=== PATIENT | male | born 1955 | race Caucasian/White ===

== ENCOUNTER → 2022-07-03 14:38 | Outpatient (POV) | payer MEDICARE, SELFPAY ==
[2022-07-03 14:55] VITALS: BP 95/69; PULSE 93; RESP 20; BMI 16.9
--- NOTE | 2022-07-03 15:32 | EXP.PAIN.OV ---
HPI Data of Consult Patient: new to practice Consult date: 07/03/22 Requesting Physician: Jazmyn Reyes APRN Primary Care Provider: Santi Connors Consult Narrative Reason for consult: Low back pain History of present illness: Mr. Anton is a 67 year old male who presents today as a new patient. He is a referral from Santi Connors. Patient rates his pain a 10 out of 10 today and states is all in his low back. Patient describes this as a aching sensation that is worse with increased activity. He states he only gets relief when laying down. Patient denies any radicular symptoms. States this is a debilitating pain that affects his activities of daily living. Patient does state back in the 80s he did have a accident where he was housing tobacco and fell off a tractor and hit a wagon with his back. Patient states he has had issues ever since. Patient has tried [id number] ibuprofen and Tylenol with no improvement of his symptoms. He is also seen physical therapy in the past with mild improvement. Patient has also been seen by a orthopedic surgeon who stated he was not a candidate for surgery. Patient has tried injective therapy in the past with a pain clinic in [place] however this did not help his symptoms. Patient has also tried heat and ice however this did not provide any change in his symptoms. Patient does have a history of rheumatoid arthritis as well as a history of alcohol abuse. Patient is currently managed with Percocet 5 mg 3 times a day by Santi Connors. Patient denies any side effects from this medication. He states this medication does take the edge off of his pain. Patient is currently on a blood thinner due to a history of aneurysm and heart attack. His Piotr is [id number]. Its been reviewed and appropriate. CC: Jazmyn Reyes APRN [facility] Medical History (Updated 07/03/22 @ 15:39 by Jazmyn Reyes APRN) Amputation of toe of left foot CAD (coronary artery disease) COPD (chronic obstructive pulmonary disease) HLD (hyperlipidemia) Hypertension Hypothyroid Rheumatoid arthritis Rheumatoid lung disease with rheumatoid arthritis Surgical History (Updated 07/03/22 @ 15:00 by Lainey Gao RN) H/O bilateral cataract extraction History of AAA (abdominal aortic aneurysm) repair Family History (Updated 07/03/22 @ 15:00 by Lainey Gao RN) Other No significant family history Social History (Updated 07/03/22 @ 15:00 by Lainey Gao RN) Smoking Status: Current every day smoker alcohol intake: former current occupational status: retired Travel in the last 8 weeks: None Review of Systems Review of Systems Review of systems:: pertinent systems reviewed and negative unless documented below Review of systems (narrative): Review of Systems: General: No recent weight changes, no fever, no sleep disturbances Respiratory: No cough, no shortness of air, no recurring pulmonary infections Cardiovascular/peripheral vascular: No chest pain, no palpitations, no edema, no shortness of breath Gastrointestinal: No new onset incontinence, normal bowel movements reported Genitourinary: No new onset incontinence Musculoskeletal: Low back pain Psychiatric: [Normal mood/affect] Neurological: [Denies weakness in extremities], [denies balance issues] Meds Home Medications and Allergies Home Medications Medication Instructions Recorded Confirmed Type amlodipine 5 mg tablet 5 mg PO DAILY blood pressure 07/03/22 07/03/22 History aspirin 81 mg capsule 81 mg PO DAILY heart health 07/03/22 07/03/22 History clopidogrel 75 mg tablet 75 mg PO DAILY Blood thinner 07/03/22 07/03/22 History folic acid 1 mg tablet 1 mg PO DAILY Supplement 07/03/22 07/03/22 History levothyroxine 25 mcg tablet 25 mcg PO DAILY hypothyroid 07/03/22 07/03/22 History oxycodone-acetaminophen 5 mg-325 1 tab PO TIDP PRN Pain 07/03/22 07/03/22 History mg tablet prednisone 5 mg tablet 7.5 mg PO DAILY Rheumatoid 07/03/22 07/03/22 History art
== END ==
PROVIDERS: PCP Family Medicine; Visit Provider Nurse Practitioner Family
DX: M51.36 Other intervertebral disc degeneration, lumbar region (principal); M48.061 Spinal stenosis, lumbar region without neurogenic claudication; M47.816 Spondylosis without myelopathy or radiculopathy, lumbar region
CPT/HCPCS: 99202; G0463

== ENCOUNTER → 2022-08-15 08:34 | Day surgery (SDC) | payer MEDICARE, SELFPAY | PROVIDERS: PCP Family Medicine; Visit Provider Anesthesiology | DX: M48.061 Spinal stenosis, lumbar region without neurogenic claudication; M47.819 Spondylosis without myelopathy or radiculopathy, site unspecified; M51.36 Other intervertebral disc degeneration, lumbar region; Z53.9 Procedure and treatment not carried out, unspecified reason | CPT/HCPCS: 62323 ==

== ENCOUNTER → 2022-08-29 08:49 | Day surgery (SDC) | payer MEDICARE, SELFPAY ==
[2022-08-29 09:11] VITALS: BP 144/91; PULSE 80; RESP 20; TEMP 37.2; O2SAT 92; BMI 28.2
[2022-08-29 11:38] VITALS: BP 154/88; PULSE 74; RESP 18; O2SAT 91
[2022-08-29 11:40] VITALS: BP 153/90; PULSE 76; RESP 18; O2SAT 95
[2022-08-29 13:05] VITALS: BP 95/55; PULSE 68; RESP 20; O2SAT 95
--- NOTE | 2022-08-29 13:34 | PC.NURSE ---
1150-pt returned to [facility] via w/c. declined offer to transfer to recliner. VSS, 100/72, 82, 20, 91% on RA. pt denies pain. dressing to lumbar spine id c/d/i 1205-pt sitting in w/c. spouse at bedside. VSS, 101/72, 73, 20, 95% on RA. no c/o pain. declined offer for oral fluids. dressing to lumbar spine c/d/i 1220-VSS 99/56, 68, 20, 92% on RA. sitting in chair. no c/o pain. Without needs or concerns at this time 1235--VSS 98/62, 73, 20, 93% on RA. pt with no c/o pain. reports itching, declined offer for PRN medication. dressing c/d/i 1255-pt resting chair. assisted to standing position. pt reports that he does not ambulate at home but transfers independently. VSS, 95/55, 68, 20, 93% on RA. dressing c/d/i 1300-MD at bedside.
--- NOTE | 2022-08-29 15:10 | EXP.PAIN.PRO ---
Procedure Date: 08/29/22 Time: 15:10 Anesthesiologist:: Jesus Casper MD Complications:: None Pre-procedure Diagnosis:: Degenerative disc disease of lumbar spine with lumbar radiculopathy symptoms Post-procedure Diagnosis:: Same Indications for Procedure:: This patient is a pleasant 67-year-old white male who we are treating for low back pain with lumbar radiculopathy symptoms. He has increasing back pain radiating down both legs. He has been off of his Plavix for 7 days. He has exhausted all conservative treatments including injections, oral medications, physical therapy and he is not a surgical candidate. He has been off of his Plavix for 7 days. He presents for intrathecal pump trial today. He has had a successful psychological evaluation. Procedure Details:: Pain pump trial Informed consent was obtained and the risk and benefits of the procedure was explained to the patient. The patient was taken to the procedure room and placed prone on the procedure table. Patient was prepped and draped in sterile fashion. C-arm fluoroscopy was used to view the lumbar spine. The skin and subcutaneous tissues were anesthetized using lidocaine. I placed a 18-gauge spinal needle into the L4-5 interspace and advanced until clear CSF was obtained. After this intrathecal catheter was inserted and advanced very easily to the L1 vertebral body. The needle was withdrawn. We were able to freely withdraw clear CSF through the catheter. We then injected intrathecal opioid single shot bolus of 25 mcg followed by saline and followed by the previous CSF that was withdrawn. The needle and catheter were then removed and a Band-Aid was placed. Patient tolerated the procedure well with no complications. We reevaluated the patient after 30 minutes to 1 hour. He was also reassessed by physical therapy. He had significant decrease in his pain symptoms. He was 80 to 90% better. He is not normally ambulatory however this was by all indications of a successful trial. Plan and Disposition:: We will follow-up with this patient in 1 week. We will assess efficacy of the trial. If successful we will plan on permanent placement with intrathecal morphine 1 mg/mL to start at 0.1 mg/day. Catheter tip will be at the T10 vertebral body.
== END | disposition home or self-care (01) ==
PROVIDERS: PCP Family Medicine; Visit Provider Anesthesiology
DX: M51.16 Intervertebral disc disorders with radiculopathy, lumbar region (principal); Z72.0 Tobacco use
CPT/HCPCS: 62323

== ENCOUNTER → 2022-12-02 11:05 | Outpatient (POV) | payer MEDICARE, SELFPAY ==
[2022-12-02 11:30] VITALS: BP 60/49; PULSE 75; RESP 15; TEMP 36.4; O2SAT 95; BMI 22.7
--- NOTE | 2022-12-02 11:38 | PC.NURSE ---
1130-provider assessed pt at followup. pt to followup with pcp. pt asymptomatic. pt instructed to push fluids and go to ED if any symptoms.
--- NOTE | 2022-12-02 11:48 | P.PCN_ITS ---
Procedure Anesthesiologist:: Estevan Ward CRNA Complications:: None
--- NOTE | 2022-12-02 11:48 | EXP.PAIN.PRO ---
Procedure Anesthesiologist:: Estevan Ward CRNA Complications:: None
--- NOTE | 2022-12-02 11:48 | EXP.PAIN.SOA ---
[facility] Pain Management SOAP Note Subjective:: This patient is a very pleasant 67-year-old male that comes our clinic today in a wheelchair for a follow-up visit and recommendation of intrathecal pain pump implantation. Patient had a successful trial August 2022. Patient had a denial for his permanent implantation. Patient is essentially wheelchair-bound due to low back hip and leg radicular symptoms. He rates his pain 10/10. Patient had difficulty sitting still during our visit due to pain. He rates his pain today 10/10. Patient had 8 hours of near complete pain relief following the intrathecal narcotic trial. This was done with fentanyl 100 mcg. Patient responded very well to the trial. He was able to ambulate with little to no pain. Flexion, extension, left and right rotation produced minimal pain. During the 8 hours he was able to clean his garage with minimal to no pain. Patient is very interested in permanent intrathecal pain pump placement. Objective:: Patient is awake alert [place] x3. In no acute distress other than low back pain. Flexion-extension lumbar spine very guarded secondary to pain. Deep tendon reflexes upper lower extremities normal. Motor strength upper extremities normal. Lower extremities weak due to lumbar back pain and radiculopathy. Gait is antalgic. Patient requires a wheelchair for access to our clinic today Assessment:: Degenerative disc disease lumbar spine multilevels. Lumbar radiculopathy symptoms. Plan:: I recommend the patient has intrathecal pain pump implantation. Due to the fact he did extremely well with his intrathecal narcotic (fentanyl 100 mcg) trial. His Piotr #[id number] is been reviewed appropriate. [facility] Disclaimer: The information contained in this section may have been updated after the patient was seen, as this information can be updated by other users. Medical History Amputation of toe of left foot CAD (coronary artery disease) COPD (chronic obstructive pulmonary disease) HLD (hyperlipidemia) Hypertension Hypothyroid Rheumatoid arthritis Rheumatoid lung disease with rheumatoid arthritis Surgical History H/O bilateral cataract extraction History of AAA (abdominal aortic aneurysm) repair Family History Other No significant family history Social History (Updated 08/29/22 @ 09:16 by Lainey Gao RN) Smoking Status: Current every day smoker alcohol intake: former substance use type: denies use current occupational status: other Travel in the last 8 weeks: None
== END | disposition home or self-care (01) ==
PROVIDERS: PCP Family Medicine; Visit Provider Nurse Anesthetist, Certified Registered
DX: M51.16 Intervertebral disc disorders with radiculopathy, lumbar region (principal)
CPT/HCPCS: 99212; G0463

== ENCOUNTER 2022-12-12 06:56 | Day surgery (SDC) | payer MEDICARE, SELFPAY ==
[2022-12-12] VITALS (7 sets, daily range): BP systolic 93–137; BP diastolic 48–65; PULSE 68–94; RESP 16–18; TEMP 36.2–43; O2SAT 93–95; BMI 26.1
[2022-12-12 07:48] LABS: Basophils # 0.2 K/mm3 (0-0.2); Basophils % 0.9 % (0.1-2.0); Hematocrit 53.4 % (42.0-52.0); Hemoglobin 17.2 g/dL (14.1-18.0); Lymphocytes # 3.5 K/mm3 (0.7-4.5); Lymphocytes % 20.3 % (10-50); Mean Corpuscular HGB Conc 32.3 g/dL (31.8-35.4); Mean Corpuscular Hemoglobin 27.9 pg (27.0-31.2); Mean Corpuscular Volume 86.3 fl (80-94); Mean Platelet Volume 7.4 fl (7.4-10.4); Monocytes % 5.8 % (1.7-9.3); Neutrophils # 11.5 K/mm3 (1.8-7.8); Platelet Count 463 K/mm3 (142-424); Red Blood Count 6.19 M/mm3 (4.60-6.20); Red Cell Distribution Width 15.1 % (11.5-17.5); White Blood Count 17.2 K/mm3 (4.8-10.8)
[2022-12-12 07:55] LABS: MANUAL DIFFERENTIAL MANUAL DIFFERENTIAL (MANUAL DIFF)
--- NOTE | 2022-12-12 07:56 | EXP.ANES.CKL ---
[facility] Disclaimer: The information contained in this section may have been updated after the patient was seen, as this information can be updated by other users. Medical History (Updated 12/12/22 @ 07:22 by Matilda Villagomez RN) Amputation of toe of left foot CAD (coronary artery disease) COPD (chronic obstructive pulmonary disease) HLD (hyperlipidemia) Hx of myocardial infarction Hypertension Hypothyroid Rheumatoid arthritis Rheumatoid lung disease with rheumatoid arthritis Surgical History (Updated 12/12/22 @ 07:22 by Matilda Villagomez RN) H/O bilateral cataract extraction H/O knee surgery History of AAA (abdominal aortic aneurysm) repair History of heart artery stent Family History (Updated 12/12/22 @ 07:22 by Matilda Villagomez RN) Other Family history of myocardial infarction Social History (Updated 12/12/22 @ 07:25 by Matilda Villagomez RN) Smoking Status: Current every day smoker alcohol intake: former substance use type: denies use current occupational status: other Travel in the last 8 weeks: None household members: spouse housing: house lives independently: Yes marital status: education level: middle school caffeine: Yes special diego needs: No agree to transfusion: No do you feel safe at home: Yes victim of physical abuse: No victim of emotional abuse: No victim of sexual abuse: No would you like helpful sources: No [facility] Anesthesia Checklist Patient Identification Patient Identification: Arm Band and Family Structural Data Admitted From: Home Planned Operative Procedure/s: Pain Pump Placement Consent for Planned Operative Procedure(s) Verified: Yes Verified Documents: Surgical Consent and History and Physical NPO Status Verified Time NPO: 00:00 Additional verifications Patient : No Anesthesia Reactions: No Hx Blood Transfusions: No Blood Transfusion Reaction: No Cephalosporin Allergy: No Previous Colonoscopy: No Airway Assessment C-Spine Mobility Assessed: Yes TMJ Mobility Assessed: Yes Dentition: Edentulous Neurological Assessment Level of Consciousness: Awake, Alert, Appropriate and Follows Commands Hx Seizures: No Numbness or tingling in extremities: No Anesthesia Plan Anesthesia Risk discussed: Yes ASA Class: III Anesthesia Type: MAC Preoperative Comments Pre-Operative Comments: Wheelchair dependent. Cardiac stents X4. On Warfarin. Of Plavix X10 days. Rheumatoid arthritis.
[2022-12-12 08:00] LABS: Chloride 105 mmol/L (98-107); Sodium 140 mmol/L (136-145)
[2022-12-12 08:01] LABS: Potassium 3.8 mmoL/L (3.5-5.1)
[2022-12-12 08:03] LABS: Blood Urea Nitrogen 12 mg/dl (9-20); Creatinine Clearance Estimated 73 mL/min (50-200); Estimated Glomerular Filt Rate 112 ml/min (>60); GFR (African American) 136 ML/MIN (>60)
[2022-12-12 08:04] LABS: Anion Gap 11.8 mEq/L (5-15); Calcium 8.6 mg/dl (8.4-10.2); Carbon Dioxide 27 mmol/L (22.0-30.0); Glucose 102 mg/dl (74-100)
[2022-12-12 08:16] LABS: Lymphocytes % 25 % (10-50); Monocytes % 9 % (2-9); Neutrophils % 66 % (42-76); Platelet Estimate Slight Increase; RBC Morphology Normal; Total Cells Counted 100
--- NOTE | 2022-12-12 13:51 | EXP.OP.NOTE ---
Date of procedure: 12/12/22 Pre-op Diagnosis:: Degenerative disease of lumbar spine with lumbar radiculopathy symptoms. Post-op Diagnosis:: Same Procedure performed:: Perm placement intrathecal pain pump with catheter and tunneling and pain pump reservoir placement Surgeon:: Jesus Casper MD PUBLIC POLICY ANALYST:: Pablo Khan Anesthesia: MAC Estimated blood loss (mL): 5 Clinical Note:: The patient is a pleasant 67-year-old white male who we are treating for low back pain with lumbar colopathy symptoms. Has been off of his Plavix for 7 days. He is exhausted all conservative treatments including injections, oral medications, physical therapy and is not a surgical candidate. He has had a successful intrathecal pump trial. He is also had a successful psychological evaluation. He presents for permanent placement of his intrathecal pain pump today. Operative findings:: None Operative note:: Informed consent was obtained and the risk and benefits of the procedure were explained to the patient. The patient was taken the operating room placed prone on the procedure table. The patient was prepped and draped in sterile fashion. C-arm fluoroscopy was used to view the right flank. An incision was made between the 12th rib and the iliac crest. A pocket was created for the pump. Ray-Radha's were placed in the pocket for hemostasis. C-arm fluoroscopy was then used to view the lumbar spine. The skin and subcutaneous tissues adjacent to the L4-5 and L5-S1 interspace were Using lidocaine. An incision was made. We dissected down to the lumbar paraspinous fascia. A 17-gauge spinal needle was inserted and advanced into the L5-S1 interspace until clear CSF was obtained. After this intrathecal catheter was inserted and advanced very easily to the T8 vertebral body. Catheter placement was posterior based on lateral view. The stylette of the catheter and the needle withdrawn. The catheter was secured to the fascia with an anchoring vice and 2-0 Prolene. I feel the pump was 20 mils of intrathecal morphine 1 mg per ml. I tunneled catheter from the back to the pump pocket and attached catheter to the pump. The Ray-Radha's were removed from the pocket. We were able to freely withdraw clear fluid from the sideport again. Both incisions were irrigated with antibiotic solution. Both incisions were then closed with 2-0 Vicryl followed by 4-0 nylon and trevor. A wound VAC was placed over both incisions. The patient was placed in an abdominal binder and taken recovery in stable condition. Pump was interrogated and started 0.1 mg/day of intrathecal bupivacaine. Patient was discharged home neurologically intact with good relief of pain symptoms. Plan and disposition: We will follow-up with this patient in 1 week for wound check and reprogramming if needed. We will follow-up in 2 to 3 weeks for suture and staple. If patient has any problems or questions they are to call us back in the pain clinic. Condition: stable Disposition: PACU Complications:: None
== END 2022-12-12 10:53 | disposition home or self-care (01) ==
PROVIDERS: PCP Family Medicine; Visit Provider Anesthesiology
DX: M51.16 Intervertebral disc disorders with radiculopathy, lumbar region; Z72.0 Tobacco use; Z79.899 Other long term (current) drug therapy
CPT/HCPCS: 62350; 62362; 80048; 85007; 85025; 96374; C1755; C1772

== ENCOUNTER → 2022-12-19 10:35 | Outpatient (POV) | payer MEDICARE, SELFPAY ==
[2022-12-19 11:33] VITALS: BP 109/62; PULSE 104; RESP 18; O2SAT 96; BMI 25.0
--- NOTE | 2022-12-19 12:15 | EXP.PAIN.SOA ---
[facility] Pain Management SOAP Note Subjective:: This patient is a very pleasant 67-year-old male that comes our clinic today for follow-up visit after intrathecal pain pump implant on 12/12/2022. Patient states overall, he is 50 to 75% better. He reports some incisional back pain today. His incisions are clean and dry. No evidence of infection. He is currently being managed with morphine sulfate 1 mg/mL at 0.1 mg/day. Patient presents in a wheelchair today. However, this is due to the excess distance from the parking lot. Otherwise, he is ambulatory at home. We discussed in detail the importance of not taking oral narcotics now that he has the intrathecal pain pump. Patient has been receiving oxycodone 5 mg 3 times daily from his primary care physician. Objective:: Patient is awake alert [place] x3. No acute distress. Flexion-extension lumbar spine guarded secondary to pain. Deep tendon reflexes upper lower extremities normal. Motor strength upper and lower extremities normal. There is no gross sensory deficit. Gait is antalgic. Patient requires wheelchair for distance. Otherwise ambulatory at home. Assessment:: Degenerative disc disease lumbar spine multilevels. Lumbar radiculopathy. Plan:: I encouraged the patient to wear his abdominal binder is much as possible. We will not make any changes in his intrathecal pain pump rate at this time. He seems to be doing very well with his current rate. Patient will return in 2 weeks for suture/staple removal. [facility] Disclaimer: The information contained in this section may have been updated after the patient was seen, as this information can be updated by other users. Medical History (Updated 12/12/22 @ 07:22 by Matilda Villagomez RN) Amputation of toe of left foot CAD (coronary artery disease) COPD (chronic obstructive pulmonary disease) HLD (hyperlipidemia) Hx of myocardial infarction Hypertension Hypothyroid Rheumatoid arthritis Rheumatoid lung disease with rheumatoid arthritis Surgical History (Updated 12/12/22 @ 07:22 by Matilda Villagomez RN) H/O bilateral cataract extraction H/O knee surgery History of AAA (abdominal aortic aneurysm) repair History of heart artery stent Family History (Updated 12/12/22 @ 07:22 by Matilda Villagomez RN) Other Family history of myocardial infarction Social History (Updated 12/12/22 @ 07:25 by Matilda E Hernando, RN) Smoking Status: Current every day smoker alcohol intake: former substance use type: denies use current occupational status: retired Travel in the last 8 weeks: None household members: spouse housing: house lives independently: Yes marital status: education level: middle school caffeine: Yes special diego needs: No agree to transfusion: No do you feel safe at home: Yes victim of physical abuse: No victim of emotional abuse: No victim of sexual abuse: No would you like helpful sources: No
== END ==
PROVIDERS: PCP Family Medicine; Visit Provider Nurse Anesthetist, Certified Registered
DX: M51.16 Intervertebral disc disorders with radiculopathy, lumbar region (principal); Z72.0 Tobacco use; Z97.8 Presence of other specified devices
CPT/HCPCS: 99212; G0463

== ENCOUNTER → 2023-01-01 14:01 | Outpatient (POV) | payer MEDICARE, SELFPAY ==
--- NOTE | 2023-01-01 14:39 | EXP.PAIN.PRO ---
Procedure Date: 01/01/23 Time: 14:39 Anesthesiologist:: Jazmyn Reyes APRN Complications:: None Pre-procedure Diagnosis:: Degenerative disc disease of lumbar spine multilevels with lumbar radiculopathy symptoms Post-procedure Diagnosis:: Same Indications for Procedure:: Patient is a pleasant 67-year-old male who presents today for intrathecal pain pump reprogramming adjustment. The patient is being treated for degenerative disc disease of lumbar spine with lumbar radiculopathy symptoms. Patient is currently being managed with morphine 1 mg/mL with a daily dose of 0.1 mg/day. Patient denies any side effects from this medication. Patient rates pain a 7 out of 10. Patient does state he continues to have some incisional back pain. He did have his intrathecal pump placed on 12/12/2022. Patient does describe this as an aching, throbbing sensation that is worse with increased activity. He does present today in wheelchair for help with ambulation. Patient is currently prescribed Percocet 5 mg 3 times a day from his primary care doctor. Patient denies any side effects from this medication. Drug screen is appropriate. Piotr [id number] has been reviewed and is appropriate. Physical exam General: Alert and oriented x3, no acute distress, pleasant and cooperative Lungs: Respirations even and unlabored, symmetrical chest expansion Eyes: PERRL Musculoskeletal: Flexion and extension of lumbar [spine] somewhat guarded secondary to pain, [antalgic gait noted] Neurological: Speech clear, no gross sensory deficit Skin: Incision sites clean, dry, well approximated, mild erythema with sutures and trevor intact Procedure Details:: Informed consent was obtained and the risk and benefits of the procedure were explained to the patient. Patient was taken to the procedure room where noninvasive monitoring was placed including noninvasive blood pressure cuff and pulse oximeter. Patient's pump was interrogated and was reprogrammed to morphine 0.11 mg/day. The patient tolerated the procedure well with no complications. Plan and Disposition:: Patient is experiencing increased pain symptoms following his procedure. His incision site is clean, dry, well approximated with mild erythema. We did remove all the sutures and trevor from the midline incision as well as removing sutures and some trevor on his incision at his pump site. We will leave approximately [address] and patient will return to clinic next week for the removal of these if indicated. Steri-Strips were applied to the midline incision. I have counseled the patient to continue postoperative restrictions of minimal bending, lifting, twisting no submerging in tub water and continuing to wear his abdominal binder. Patient will return to clinic in 1 week for reevaluation of symptoms and plan of care. Patient has been instructed to contact the clinic with any concerns before the next appointment. Dr. Casper has reviewed this note and agrees with this plan of care. This note was dictated using voice recognition software and make contain errors or omissions. -- It Is medically necessary for this patient to continue to have their intrathecal pump refilled at regular intervals. This patient had an intrathecal pain pump implanted after meeting criteria of chronic intractable pain for greater than 3 months and failing conservative treatments. Patient has committed and been compliant to the treatment plan and all planned follow up care. Since implantation of the intrathecal pain pump, the patient has had decreased pain and been more functional. Oral medications have been reduced including intake of oral opioids. Patient continues to do well with intrathecal therapy with decrease in pain symptoms and increase in functional status. Stopping intrathecal medications can lead to life threatening withdrawal, seizures, cardiac arrest, severe pain, and possible . Pumps that are not refilled at regular intervals
[2023-01-01 15:23] VITALS: BP 86/52; PULSE 73; RESP 18; O2SAT 97; BMI 25.8
== END | disposition home or self-care (01) ==
PROVIDERS: PCP Family Medicine; Visit Provider Nurse Practitioner Family
DX: Z45.1 Encounter for adjustment and management of infusion pump (principal); M51.16 Intervertebral disc disorders with radiculopathy, lumbar region
CPT/HCPCS: 62368; 99213; G0463

== ENCOUNTER → 2023-01-08 14:13 | Outpatient (POV) | payer MEDICARE, SELFPAY ==
--- NOTE | 2023-01-08 15:14 | EXP.PAIN.PRO ---
Procedure Date: 01/08/23 Time: 14:38 Anesthesiologist:: Jazmyn Reyes APRN Complications:: None Pre-procedure Diagnosis:: Degenerative disc disease of the lumbar spine with lumbar radiculopathy symptoms, arthritis Post-procedure Diagnosis:: Same Indications for Procedure:: Patient is a pleasant 67-year-old male who presents today for intrathecal pain pump reprogramming adjustment. The patient is being treated for degenerative disc disease of lumbar spine with lumbar reticular apathy symptoms, generalized arthritis. Patient is currently being managed with morphine 1 mg/mL with a daily dose of 0.11 mg/day. Patient denies any side effects from this medication. Patient rates pain a 5 out of 10. Patient denies any new injury or trauma. He states he does continue to have pain in his hands related to his arthritis as well as some low back pain that is midline possibly from incisional pain. Patient had previously been prescribed Percocet 5 mg 3 times a day from his primary care doctor. He states at his last visit he was told to discontinue this medication since he now has his pain pump. Drug screen is appropriate. [facility], [place] [id number] has been reviewed and is appropriate. Physical exam General: Alert and oriented x3, no acute distress, pleasant and cooperative Lungs: Respirations even and unlabored, symmetrical chest expansion Eyes: PERRL Musculoskeletal: Flexion and extension of lumbar [spine] somewhat guarded secondary to pain, [antalgic gait noted] Neurological: Speech clear, no gross sensory deficit Skin: Incision sites clean, dry, well approximated with mild erythema noted, trevor intact Procedure Details:: Informed consent was obtained and the risk and benefits of the procedure were explained to the patient. Patient was taken to the procedure room where noninvasive monitoring was placed including noninvasive blood pressure cuff and pulse oximeter. Patient's pump was interrogated and was reprogrammed to morphine 0.1-1 1 mg/day. The patient tolerated the procedure well with no complications. Plan and Disposition:: Patient's incision site is clean, dry, well approximated with mild erythema noted and trevor intact. At this time we did not remove any additional trevor and patient will follow-up next week. I have counseled the patient to continue his postop restrictions and if indicated next week we will remove the remainder trevor and apply Steri-Strips. I will order the patient a compounding cream at today's visit to help with his arthritis. Patient will return to clinic in 1 week for reevaluation of symptoms, and plan of care. Patient has been instructed to contact the clinic with any concerns before the next appointment. Dr. Casper has reviewed this note and agrees with this plan of care. This note was dictated using voice recognition software and make contain errors or omissions. -- It Is medically necessary for this patient to continue to have their intrathecal pump refilled at regular intervals. This patient had an intrathecal pain pump implanted after meeting criteria of chronic intractable pain for greater than 3 months and failing conservative treatments. Patient has committed and been compliant to the treatment plan and all planned follow up care. Since implantation of the intrathecal pain pump, the patient has had decreased pain and been more functional. Oral medications have been reduced including intake of oral opioids. Patient continues to do well with intrathecal therapy with decrease in pain symptoms and increase in functional status. Stopping intrathecal medications can lead to life threatening withdrawal, seizures, cardiac arrest, severe pain, and possible . Pumps that are not refilled at regular intervals can be damages and cause and need for replacement. We continually titrate dose and concentration to optimize pain relief and function. We are limited in concentration for certain drugs to safely deliver medications thro
[2023-01-08 16:00] VITALS: BP 144/71; PULSE 104; RESP 20; O2SAT 96; BMI 25.8
== END | disposition home or self-care (01) ==
PROVIDERS: PCP Family Medicine; Visit Provider Nurse Practitioner Family
DX: Z45.1 Encounter for adjustment and management of infusion pump (principal); M51.16 Intervertebral disc disorders with radiculopathy, lumbar region; M19.90 Unspecified osteoarthritis, unspecified site
CPT/HCPCS: 62368; 99213; G0463

== ENCOUNTER → 2023-01-14 12:54 | Outpatient (POV) | payer MEDICARE, SELFPAY ==
--- NOTE | 2023-01-14 13:28 | EXP.PAIN.SOA ---
[facility] Pain Management SOAP Note Subjective:: Patient is a pleasant 67-year-old male who presents today for follow-up. We are currently treating the patient for degenerative disc disease of lumbar spine with lumbar radiculopathy symptoms, arthritis. Today he rates his pain a 5 out of 10. Patient denies any new trauma or injury. Patient denies any change location or type of pain he experiences. Patient states he has had better improvement of his pain symptoms since his last increase last week. Patient is currently managed with morphine 1 mg/mL with 0.1211 mg/day. Patient denies any side effects from this medication. He states it is helping improve his pain symptoms. Patient states that he does notice occasional pain when he bumps around his pump site. Patient does state that he feels like he does have additional weakness in his legs and does use a walker at home for help with ambulation. Patient is not currently on any scheduled medications. His Piotr is [id number]. Its been reviewed and appropriate. Review of Systems: General: No recent weight changes, no fever, no sleep disturbances Respiratory: No cough, no shortness of air, no recurring pulmonary infections Cardiovascular/peripheral vascular: No chest pain, no palpitations, no edema, no shortness of breath Gastrointestinal: No new onset incontinence, normal bowel movements reported Genitourinary: No new onset incontinence Musculoskeletal: Low back pain Psychiatric: [Normal mood/affect] Neurological: [Denies weakness in extremities], [denies balance issues] Objective:: Physical Exam: General: Alert and oriented x3, no acute distress, pleasant and cooperative Lungs: Respirations even and unlabored, symmetrical chest expansion Eyes: PERRL Musculoskeletal: Flexion and extension of lumbar [spine] somewhat guarded secondary to pain, [antalgic gait noted] Neurological: Speech clear, no gross sensory deficit Assessment:: Degenerative disc disease of lumbar spine with lumbar radiculopathy symptoms, generalized arthritis Plan:: Patient is doing well since his recent intrathecal reprogram last week and does not need any additional adjustments at this time. Patient's incision sites are clean, dry, well approximated and did have the remainder of his trevor were removed during today's visit with Steri-Strips applied. I have counseled the patient to continue his postop restrictions and that he may benefit from physical therapy in the future. Patient will return to clinic in 1 month for reevaluation of symptoms and plan of care. Patient has been instructed to contact the clinic with any concerns before the next appointment. Dr. Casper has reviewed this note and agrees with this plan of care. This note was dictated using voice recognition software and make contain errors or omissions. -- It Is medically necessary for this patient to continue to have their intrathecal pump refilled at regular intervals. This patient had an intrathecal pain pump implanted after meeting criteria of chronic intractable pain for greater than 3 months and failing conservative treatments. Patient has committed and been compliant to the treatment plan and all planned follow up care. Since implantation of the intrathecal pain pump, the patient has had decreased pain and been more functional. Oral medications have been reduced including intake of oral opioids. Patient continues to do well with intrathecal therapy with decrease in pain symptoms and increase in functional status. Stopping intrathecal medications can lead to life threatening withdrawal, seizures, cardiac arrest, severe pain, and possible . Pumps that are not refilled at regular intervals can be damages and cause and need for replacement. We continually titrate dose and concentration to optimize pain relief and function. We are limited in concentration for certain drugs to safely deliver medications through the pump and stay within the recommendations from the Polyanalgesic Cons
[2023-01-14 15:01] VITALS: BP 100/62; PULSE 110; RESP 20; BMI 25.8
== END ==
PROVIDERS: PCP Family Medicine; Visit Provider Nurse Practitioner Family
DX: M51.16 Intervertebral disc disorders with radiculopathy, lumbar region (principal); M19.90 Unspecified osteoarthritis, unspecified site
CPT/HCPCS: 62368

== ENCOUNTER → 2023-02-16 13:20 | Outpatient (POV) | payer MEDICARE, SELFPAY ==
[2023-02-16 14:13] VITALS: BP 115/66; PULSE 101; RESP 24; BMI 25.7
--- NOTE | 2023-02-16 14:15 | EXP.PAIN.PRO ---
Procedure Date: 02/16/23 Time: 14:15 Anesthesiologist:: Jazmyn Reyes APRN Complications:: None Pre-procedure Diagnosis:: Degenerative disc disease of lumbar spine with lumbar radiculopathy symptoms, arthritis Post-procedure Diagnosis:: Same Indications for Procedure:: Patient is a pleasant 67-year-old male who presents today for intrathecal pain pump reprogram and adjustments. The patient is being treated for degenerative disc disease of lumbar spine with lumbar radiculopathy symptoms, arthritis. Patient is currently being managed with intrathecal morphine 1 mg/mL with a daily dose of 0.1211 milligrams per day. Patient denies any side effects from this medication. He is also prescribed Percocet 5 mg 3 times a day from his primary care doctor. Patient denies any side effects from this medication. He states he has been having additional pain as he has been moving around more. Patient does state he has rheumatoid arthritis and usually does infusions however he has to sit for 5 hours when this is occurring and he has not been able to handle the prolonged positioning. Patient rates pain a 10 out of 10. Drug screen is appropriate. [facility] [id number] has been reviewed and is appropriate. Physical exam General: Alert and oriented x3, no acute distress, pleasant and cooperative Lungs: Respirations even and unlabored, symmetrical chest expansion Eyes: PERRL Musculoskeletal: Flexion and extension of lumbar [spine] somewhat guarded secondary to pain, [antalgic gait noted] Neurological: Speech clear, no gross sensory deficit Skin: Incision sites clean, dry with moderate scabbing over right lateral portion, no erythema noted Procedure Details:: Informed consent was obtained and the risk and benefits of the procedure were explained to the patient. Patient was taken to the procedure room where noninvasive monitoring was placed including noninvasive blood pressure cuff and pulse oximeter. Patient's pump was interrogated and was reprogrammed to morphine 0.1332 mg/day. The patient tolerated the procedure well with no complications. Plan and Disposition:: Patient tolerated his increase with no complications and was discharged neurologically intact. Patient will return to clinic in 2 weeks for reevaluation of symptoms, possible intrathecal adjustments and follow-up. Patient's incision sites did appear that at some point in time it had opened up along the right lateral border however during today's visit it is fully scabbed over with no signs of infection. We will continue to monitor this at upcoming visits. Patient has been instructed to contact the clinic with any concerns before the next appointment. Dr. Casper has reviewed this note and agrees with this plan of care. This note was dictated using voice recognition software and make contain errors or omissions. -- It Is medically necessary for this patient to continue to have their intrathecal pump refilled at regular intervals. This patient had an intrathecal pain pump implanted after meeting criteria of chronic intractable pain for greater than 3 months and failing conservative treatments. Patient has committed and been compliant to the treatment plan and all planned follow up care. Since implantation of the intrathecal pain pump, the patient has had decreased pain and been more functional. Oral medications have been reduced including intake of oral opioids. Patient continues to do well with intrathecal therapy with decrease in pain symptoms and increase in functional status. Stopping intrathecal medications can lead to life threatening withdrawal, seizures, cardiac arrest, severe pain, and possible . Pumps that are not refilled at regular intervals can be damages and cause and need for replacement. We continually titrate dose and concentration to optimize pain relief and function. We are limited in concentration for certain drugs to safely deliver medications through the pump and stay within the recomm
== END | disposition home or self-care (01) ==
PROVIDERS: PCP Family Medicine; Visit Provider Nurse Practitioner Family
DX: M51.16 Intervertebral disc disorders with radiculopathy, lumbar region (principal); M19.90 Unspecified osteoarthritis, unspecified site
CPT/HCPCS: 62368

== ENCOUNTER → 2023-03-02 13:51 | Outpatient (POV) | payer MEDICARE, SELFPAY ==
--- NOTE | 2023-03-02 14:35 | EXP.PAIN.PRO ---
Procedure Date: 03/02/23 Time: 14:35 Anesthesiologist:: Jazmyn Reyes APRN Complications:: None Pre-procedure Diagnosis:: Degenerative disc disease of lumbar spine with lumbar radiculopathy symptoms, arthritis Post-procedure Diagnosis:: Same Indications for Procedure:: Patient is a pleasant 67-year-old male who presents today for intrathecal pain pump reprogramming adjustment. The patient is being treated for degenerative disc disease of lumbar spine with lumbar radiculopathy symptoms, arthritis. Patient is currently being managed with morphine 1 mg/mL with a daily dose of 0.1332 mg/day. Patient denies any side effects from this medication. Patient rates pain a 10 out of 10. Drug screen is appropriate. [facility] [id number] has been reviewed and is appropriate. Physical exam General: Alert and oriented x3, no acute distress, pleasant and cooperative Lungs: Respirations even and unlabored, symmetrical chest expansion Eyes: PERRL Musculoskeletal: Flexion and extension of lumbar [spine] somewhat guarded secondary to pain, [antalgic gait noted] Neurological: Speech clear, no gross sensory deficit Skin: Incision site has the right lateral border open with pus filled drainage noted Procedure Details:: Informed consent was obtained and the risk and benefits of the procedure were explained to the patient. Patient was taken to the procedure room where noninvasive monitoring was placed including noninvasive blood pressure cuff and pulse oximeter. Patient's pump was interrogated and was reprogrammed to morphine 0.1597 mg/day. The patient tolerated the procedure well with no complications. Plan and Disposition:: Patient is experiencing significant pain in his low back. I have counseled the patient that his current incision site along the right lateral border is open and draining. Patient does not have erythema noted around this site however due to the depth of the wound I am recommending that we schedule him for revision to close the area. Patient will be scheduled next Thursday for revision in [place]. We will contact the patient for all his appointments info and submit to insurance for this procedure. Patient has been instructed to contact the clinic with any concerns before the next appointment. Dr. Casper has reviewed this note and agrees with this plan of care. This note was dictated using voice recognition software and make contain errors or omissions. -- It Is medically necessary for this patient to continue to have their intrathecal pump refilled at regular intervals. This patient had an intrathecal pain pump implanted after meeting criteria of chronic intractable pain for greater than 3 months and failing conservative treatments. Patient has committed and been compliant to the treatment plan and all planned follow up care. Since implantation of the intrathecal pain pump, the patient has had decreased pain and been more functional. Oral medications have been reduced including intake of oral opioids. Patient continues to do well with intrathecal therapy with decrease in pain symptoms and increase in functional status. Stopping intrathecal medications can lead to life threatening withdrawal, seizures, cardiac arrest, severe pain, and possible . Pumps that are not refilled at regular intervals can be damages and cause and need for replacement. We continually titrate dose and concentration to optimize pain relief and function. We are limited in concentration for certain drugs to safely deliver medications through the pump and stay within the recommendations from the Polyanalgesic Consensus Committee Guidelines. Depending on dose and concentration these pumps may need to be refilled sooner than 3 months as we titrate.
[2023-03-02 14:54] VITALS: BP 104/62; PULSE 114; RESP 20; BMI 19.3
--- NOTE | 2023-03-05 08:50 | PC.NURSE ---
03/[id number]-Ybrfvnw DS i tab po BID #[id number] called in to [facility] pharmacy in [place] per Dr. Casper order. 03/04/23 1251-Patient notified to stop Plavix per Dr. Casper instruction and that antibiotics were called in to his pharmacy per Dr. Casper order. understanding verbalized.
== END | disposition home or self-care (01) ==
PROVIDERS: PCP Family Medicine; Visit Provider Nurse Practitioner Family
DX: Z45.1 Encounter for adjustment and management of infusion pump (principal); M51.16 Intervertebral disc disorders with radiculopathy, lumbar region; M19.90 Unspecified osteoarthritis, unspecified site
CPT/HCPCS: 62368

== ENCOUNTER → 2023-03-09 12:54 | Outpatient (POV) | payer MEDICARE, SELFPAY ==
--- NOTE | 2023-03-09 13:25 | EXP.PAIN.PRO ---
Procedure Date: 03/09/23 Time: 13:25 Anesthesiologist:: Jazmyn Reyes APRN Complications:: None Pre-procedure Diagnosis:: Degenerative disc disease of lumbar spine with lumbar radiculopathy symptoms, arthritis, dehiscence of lower lumbar incision site Post-procedure Diagnosis:: Same Indications for Procedure:: Patient is a pleasant 67-year-old male who presents today for wound dehiscence follow-up and intrathecal pain pump reprogram and adjustment. The patient is being treated for degenerative disc disease of lumbar spine with lumbar radiculopathy symptoms, arthritis, dehiscence of lower lumbar incision site. Patient is currently being managed with morphine 1 mg/mL with a daily dose of 0.1597 mg/day. Patient denies any side effects from this medication. He states he has not noticed significant relief at this time. Patient rates pain a 10 out of 10. Patient denies any new trauma or injury. He denies any change location or type of pain he experiences. He continues to have significant low back pain that is worse with increased activity. He often states his pain is aggravated by riding in a vehicle or sitting for prolonged periods of time. He states the only improvement he gets is when he is laying down. He does also experience more sweating over the last week. Patient states he does continue to have some dizziness but this has been going on for months. Patient states he did have several labs drawn by his primary care doctor a couple of months ago with no abnormalities noted. He is still continuing to take antibiotics for his open wound. At our last visit we did prescribe these antibiotics and did try and get him in for a wound washout and closure however the closest location was in [place] and the patient declined to travel to this location. Drug screen is appropriate. [facility] [id number] has been reviewed and is appropriate. Physical exam General: Alert and oriented x3, no acute distress, pleasant and cooperative Lungs: Respirations even and unlabored, symmetrical chest expansion Eyes: PERRL Musculoskeletal: Flexion and extension of lumbar [spine] somewhat guarded secondary to pain, [antalgic gait noted] Neurological: Speech clear, no gross sensory deficit Skin: Midline incision is clean, dry, well approximated with no erythema; right lower lumbar incision has dehisced with purulent drainage noted, no erythema around the site Procedure Details:: Informed consent was obtained and the risk and benefits of the procedure were explained to the patient. Patient was taken to the procedure room where noninvasive monitoring was placed including noninvasive blood pressure cuff and pulse oximeter. Patient's pump was interrogated and was reprogrammed to morphine 0.1916 mg/day. The patient tolerated the procedure well with no complications. Plan and Disposition:: Patient tolerated his intrathecal increase with no complications. I have discussed with the patient that we will plan on putting him on the operating room schedule for Thursday for an I&D with wound closure of his right lower lumbar incision. Patient has been counseled to continue to take his antibiotics as prescribed and to contact our office with any other problems or complications before Thursday. Patient will be scheduled for an incision and drainage with wound closure on Thursday the . Patient has been instructed to contact the clinic with any concerns before the next appointment. Dr. Casper has reviewed this note and agrees with this plan of care. This note was dictated using voice recognition software and make contain errors or omissions. -- It Is medically necessary for this patient to continue to have their intrathecal pump refilled at regular intervals. This patient had an intrathecal pain pump implanted after meeting criteria of chronic intractable pain for greater than 3 months and failing conservative treatments. Patient has committed and been compliant to the treatment plan
[2023-03-09 14:33] VITALS: BP 130/63; PULSE 103; RESP 20; O2SAT 98; BMI 19.2
== END | disposition home or self-care (01) ==
PROVIDERS: PCP Family Medicine; Visit Provider Nurse Practitioner Family
DX: Z45.1 Encounter for adjustment and management of infusion pump (principal); M51.16 Intervertebral disc disorders with radiculopathy, lumbar region; T81.31XD Disruption of external operation (surgical) wound, not elsewhere classified, subsequent encounter
CPT/HCPCS: 99213; G0463

== ENCOUNTER → 2023-03-09 13:38 | Outpatient (CLI) | payer MEDICARE, SELFPAY ==
[2023-03-09 15:13] LABS: Basophils # 0.1 K/mm3 (0-0.2); Basophils % 0.5 % (0.1-2.0); Eosinophils # 0.3 K/mm3 (0.0-0.4); Eosinophils % 1.8 % (0.1-12.0); Hematocrit 48.9 % (42.0-52.0); Hemoglobin 15.7 g/dL (14.1-18.0); Lymphocytes # 2.1 K/mm3 (0.7-4.5); Lymphocytes % 14.6 % (10-50); Mean Corpuscular HGB Conc 32.2 g/dL (31.8-35.4); Mean Corpuscular Hemoglobin 26.3 pg (27.0-31.2); Mean Corpuscular Volume 81.7 fl (80-94); Mean Platelet Volume 7.7 fl (7.4-10.4); Monocytes % 6.7 % (1.7-9.3); Neutrophils # 10.7 K/mm3 (1.8-7.8); Neutrophils % 76.3 % (37.0-80.0); Platelet Count 406 K/mm3 (142-424); Red Blood Count 5.98 M/mm3 (4.60-6.20); Red Cell Distribution Width 16.1 % (11.5-17.5); White Blood Count 14.1 K/mm3 (4.8-10.8)
[2023-03-09 15:41] LABS: Chloride 94 mmol/L (98-107); Potassium 4.2 mmoL/L (3.5-5.1); Sodium 134 mmol/L (136-145)
[2023-03-09 15:44] LABS: Blood Urea Nitrogen 8 mg/dl (9-20); Estimated Glomerular Filt Rate 84 ml/min (>60); GFR (African American) 102 ML/MIN (>60)
[2023-03-09 15:45] LABS: Anion Gap 19.2 mEq/L (5-15); Calcium 9.1 mg/dl (8.4-10.2); Carbon Dioxide 25 mmol/L (22.0-30.0); Glucose 111 mg/dl (74-100)
== END ==
PROVIDERS: Anesthesiology; PCP Family Medicine; Visit Provider Nurse Practitioner Family
DX: Z01.812 Encounter for preprocedural laboratory examination (principal); T81.32XA Disruption of internal operation (surgical) wound, not elsewhere classified, initial encounter
CPT/HCPCS: 36415; 80048; 85025; 99213; G0463

== ENCOUNTER 2023-03-13 08:50 | Day surgery (SDC) | payer MEDICARE, SELFPAY ==
[2023-03-09 15:03] VITALS: BMI 20.9
[2023-03-13 09:56] VITALS: BP 113/64; PULSE 78; RESP 18; TEMP 36.3; O2SAT 96
--- NOTE | 2023-03-13 10:55 | P.PN_ITS ---
[facility] Disclaimer: The information contained in this section may have been updated after the patient was seen, as this information can be updated by other users. Medical History Amputation of toe of left foot CAD (coronary artery disease) COPD (chronic obstructive pulmonary disease) HLD (hyperlipidemia) Hx of myocardial infarction Hypertension Hypothyroid Rheumatoid arthritis Rheumatoid lung disease with rheumatoid arthritis Surgical History H/O bilateral cataract extraction H/O knee surgery History of AAA (abdominal aortic aneurysm) repair History of heart artery stent Family History Other Family history of myocardial infarction Social History Smoking Status: Current every day smoker alcohol intake: former substance use type: denies use current occupational status: disabled Travel in the last 8 weeks: None household members: spouse housing: house lives independently: Yes marital status: education level: middle school caffeine: Yes special diego needs: No agree to transfusion: No do you feel safe at home: Yes victim of physical abuse: No victim of emotional abuse: No victim of sexual abuse: No would you like helpful sources: No [facility] Anesthesia Checklist Patient Identification Patient Identification: Arm Band and Verbal (Name & ) Structural Data Admitted From: Home Planned Operative Procedure/s: I & D Consent for Planned Operative Procedure(s) Verified: Yes NPO Status Verified Time NPO: 00:00 Additional verifications Anesthesia Reactions: No Hx Blood Transfusions: No Blood Transfusion Reaction: No Airway Assessment C-Spine Mobility Assessed: Yes TMJ Mobility Assessed: Yes Dentition: Edentulous Neurological Assessment Level of Consciousness: Awake Hx Seizures: No Numbness or tingling in extremities: No Anesthesia Plan Anesthesia Risk discussed: Yes Anesthesia Plan: Verified ASA Class: III Anesthesia Type: MAC
[2023-03-13 12:15] VITALS: BP 80/56; PULSE 83; RESP 16; TEMP 36.1; O2SAT 93
[2023-03-13 12:30] VITALS: BP 81/57; PULSE 77; RESP 16; O2SAT 93
--- NOTE | 2023-03-13 12:34 | P.OP_ITS ---
Date of procedure: 03/13/23 Pre-op Diagnosis:: Wound dehiscence over the intrathecal pain pump Post-op Diagnosis:: Same Procedure performed:: Incision and drainage of intrathecal pain pump incision with primary closure Surgeon:: Jesus Casper MD DISTRICT CLAIMS MANAGER:: Kevyn Malone Anesthesia: MAC Estimated blood loss (mL): 5 Clinical Note:: This patient is a pleasant 67-year-old white male who we have been treating for low back pain with leg pain with intrathecal morphine. His incision over his intrathecal pain pump has dehisced. It does not appear infected however there is a hole in the middle of his incision. We will open up this incision for debridement and irrigation. We will also plan on primary closure. We will refill his pump with 20 mls of intrathecal morphine 1 mg per mall at this time. Operative findings:: None Operative note:: Informed consent was obtained the risk and benefits of the procedure were explained to the patient. Patient was taken the operating room placed prone on the procedure table. He was prepped and draped in sterile fashion. The skin and subcutaneous tissues overlying the pain pump were anesthetized using lidocaine. I made an incision and dissected out the pain pump reservoir. We irrigated the pump incision and pocket with antibiotic solution. We debrided the skin edges. The pump was filled with 20 mils of intrathecal morphine 1 mg per mill. We also checked the catheter we accessed the sideport we are able to freely withdraw medication and CSF through the sideport of the intrathecal pain pump. The pump was then placed in the pocket. We closed the incision primarily with 2-0 Vicryl followed by 4-0 nylon. The pump was interrogated and started back at a lower dose of 0.15 mg/day. Patient tolerated the procedure well with no complications. Patient was discharged home neurologic intact with good relief of pain symptoms. Plan and disposition: We will follow-up with this patient in 1 week for wound check. We will follow-up in 2 to 3 weeks for suture removal. If he has any problems with his intrathecal infusion he is to call us in the pain clinic. Condition: stable Disposition: PACU Complications:: None
[2023-03-13 12:45] VITALS: BP 111/67; PULSE 76; RESP 16; O2SAT 93
[2023-03-13 13:00] VITALS: BP 119/73; PULSE 77; RESP 16; O2SAT 94
== END 2023-03-13 13:00 | disposition home or self-care (01) ==
PROVIDERS: PCP Family Medicine; Visit Provider Anesthesiology
DX: T85.738A Infection and inflammatory reaction due to other nervous system device, implant or graft, initial encounter (principal); M54.50 Low back pain, unspecified; M79.606 Pain in leg, unspecified
CPT/HCPCS: 10060; 95991; 96374; J2704; J3370

== ENCOUNTER → 2023-03-19 15:10 | Outpatient (POV) | payer MEDICARE, SELFPAY ==
--- NOTE | 2023-03-19 15:36 | EXP.PAIN.SOA ---
[facility] Pain Management SOAP Note Subjective:: Patient is a pleasant 67-year-old male who presents today for follow-up of incision debridement of wound dehiscence of intrathecal patient is a pleasant on 03/09/2023. We are currently treating the patient for degenerative disc disease of lumbar spine with lumbar radiculopathy symptoms, arthritis. Today he rates his pain a 6 out of 10. Patient denies any new trauma or injury. Patient denies any change to the location or type of pain he experiences. He does state that he has had improvement following this procedure. He states that his pain does seem to be managed better and that he does not feel like he has something sticking out as far within his intrathecal pump. He is currently managed with morphine 1 mg/mL with a daily dose of 0.1498 mg/day. Patient denies any side effects from this medication. We did also at the last visit send him for wound care due to his limited range of motion and frequent sores that will occasionally pop up. He states he has not been for this visit yet but that it is coming up. His Piotr is [id number]. Its been reviewed and appropriate. Review of Systems: General: No recent weight changes, no fever, no sleep disturbances Respiratory: No cough, no shortness of air, no recurring pulmonary infections Cardiovascular/peripheral vascular: No chest pain, no palpitations, no edema, no shortness of breath Gastrointestinal: No new onset incontinence, normal bowel movements reported Genitourinary: No new onset incontinence Musculoskeletal: Low back pain Psychiatric: [Normal mood/affect] Neurological: [Denies weakness in extremities], [denies balance issues] Objective:: Physical Exam: General: Alert and oriented x3, no acute distress, pleasant and cooperative Lungs: Respirations even and unlabored, symmetrical chest expansion Eyes: PERRL Musculoskeletal: Flexion and extension of lumbar [spine] somewhat guarded secondary to pain, [antalgic gait noted] Neurological: Speech clear, no gross sensory deficit Assessment:: Degenerative disc disease of lumbar spine with lumbar radiculopathy symptoms, arthritis Plan:: Patient is doing much better following his procedure revision. His incision is clean, dry, well approximated with minimal erythema and sutures intact. I have counseled the patient that we will plan on leaving his sutures in for a full 3 weeks and that when we do start to remove these we will do every other 1 and that if it does seem to be opening up we will pause and provide another week before removing them completely. I have counseled the patient to continue his postop restrictions and to go to his wound care follow-up to review over possible preventative measures for future bedsores and or skin breakdown related to his limited range of motion and decreased ambulation. I will set him up with his PTM device today. Patient will return to clinic in 2 weeks for reevaluation of symptoms and plan of care. Patient has been instructed to contact the clinic with any concerns before the next appointment. Dr. Casper has reviewed this note and agrees with this plan of care. This note was dictated using voice recognition software and make contain errors or omissions. -- It Is medically necessary for this patient to continue to have their intrathecal pump refilled at regular intervals. This patient had an intrathecal pain pump implanted after meeting criteria of chronic intractable pain for greater than 3 months and failing conservative treatments. Patient has committed and been compliant to the treatment plan and all planned follow up care. Since implantation of the intrathecal pain pump, the patient has had decreased pain and been more functional. Oral medications have been reduced including intake of oral opioids. Patient continues to do well with intrathecal therapy with decrease in pain symptoms and increase in functional status. Stopping intrathecal medications can lead to life threatening withdrawa
== END ==
PROVIDERS: Visit Provider Nurse Practitioner Family
DX: M51.16 Intervertebral disc disorders with radiculopathy, lumbar region (principal); M19.90 Unspecified osteoarthritis, unspecified site
CPT/HCPCS: 62368; 99213; G0463

== ENCOUNTER 2023-03-25 14:48 | Outpatient (RCR) | payer MEDICARE, SELFPAY ==
--- NOTE | 2023-03-25 15:37 | HMH.PTOPWND ---
Rehab Outpt Wound Evaluation Rehab OP Wound Evaluation Start: 03/25/23 14:55 Freq: Status: Active Protocol: Document 03/25/23 15:27 HARVEY (Rec: 03/25/23 15:37 PHORVANESSA [id number]) E-signed By Kirill Astorga, PT Subjective/History History History This is the initial PT eval for Jeffrey Anton 67 yowm who presents with c/o L buttock wound x 3-4 wks with insidious onset. He underwent intrathecal pain pump placement on 03/09/23 and I&D of the incision on 03/13/23. His significant other has been performing wound care to this wound throughout its course, as he has a hx of multiple prior wounds in the past. This wound appears to be more of a shear injury as it lies more medial and posterior to the greater trochanter of the L hip. He has significant baseline mobility reduction due to multiple co-morbid conditions including CAD with VT and stents, COPD, HLD, HTN, hypothyroid, AAA repair, and RA with severe ulnar drift noted B. He uses w/c for primary mobility at baseline and spends most of his day in bed. He does have a pressure relieveing mattress overlay at home already. Subjective Subjective He reports no c/o pain or tenderness aroundthe L buttock wound at this time. Wound Eval Wound Left Buttock Wound Type shear vs pressure Is This a Chronic Wound Yes Wound Staging Stage II Query Text:Stage I - Unbroken, red skin, no blanching. Stage II - Skin broken, superficial skin loss involving epidermis alone or also dermis. Partial loss of skin layers. Stage III - Pressure area involves epidermis, dermis and subcutaneous tissue, full thickness skin loss. Stage IV - Pressure area involves epidermis, subcutaneous tissue, bone and other supportive tissue. Full thickness skin loss with extensive destruction of underlying
== END 2023-03-25 14:50 | disposition home or self-care (01) ==
LOC: PT 14:48
PROVIDERS: PCP Family Medicine; Visit Provider Nurse Practitioner Family
DX: S31.821A Laceration without foreign body of left buttock, initial encounter (principal)
CPT/HCPCS: 97163

== ENCOUNTER → 2023-04-06 15:05 | Outpatient (POV) | payer MEDICARE, SELFPAY ==
[2023-04-06 15:38] VITALS: BP 129/75; PULSE 127; RESP 19; O2SAT 97
--- NOTE | 2023-04-06 15:40 | EXP.PAIN.PRO ---
Procedure Date: 04/06/23 Time: 15:40 Anesthesiologist:: Jazmyn Reyes APRN Complications:: None Pre-procedure Diagnosis:: Degenerative disc disease of lumbar spine with lumbar radiculopathy symptoms, arthritis Post-procedure Diagnosis:: Same Indications for Procedure:: Patient is a pleasant 68-year-old male who presents today for follow-up. We are currently treating the patient for degenerative disc disease of lumbar spine with lumbar radiculopathy symptoms, arthritis. Today he rates his pain a 10 out of 10. Patient denies any new trauma or injury. Patient denies any change in location or type of pain he experiences. Patient did have a incision and debridement of a wound dehiscence of intrathecal pain pump on 03/09/2023. Patient states he has continued to do well from this procedure. He denies any problems with his pump. He is currently managed with morphine 1 mg/mL with a daily dose of 0.1498 mg/day. Patient has been still on 6-week postop restrictions and was counseled at the previous visit that we would be leaving and his sutures for an extended period due to previous nonhealing. He is [facility] he is [id number]. He has been reviewed and appropriate. Physical Exam: General: Alert and oriented x3, no acute distress, pleasant and cooperative Lungs: Respirations even and unlabored, symmetrical chest expansion Eyes: PERRL Musculoskeletal: Flexion and extension of lumbar [spine] somewhat guarded secondary to pain, [antalgic gait noted] Neurological: Speech clear, no gross sensory deficit Skin: Incision sites clean, dry, well approximated with no erythema or drainage noted sutures intact Procedure Details:: Informed consent was obtained and the risk and benefits of the procedure were explained to the patient. Patient was taken to the procedure room where noninvasive monitoring was placed including noninvasive blood pressure cuff and pulse oximeter. Patient's pump was interrogated and was reprogrammed to morphine 0.1647 mg/day. The patient tolerated the procedure well with no complications. Plan and Disposition:: Patient's incision was clean, dry, well approximated with no erythema and no drainage noted. We did try to remove his sutures doing every other 1 however the incision did seem to gap so the remaining sutures were left in place. Patient has been counseled to continue to monitor his incision site for any infection or worsening symptoms. Patient will return to clinic in 1 week for reevaluation and possible suture removal. Patient did tolerate his intrathecal adjustment with no complication and was discharged neurologically intact. Patient has been instructed to contact the clinic with any concerns before the next appointment. Dr. Casper has reviewed this note and agrees with this plan of care. This note was dictated using voice recognition software and make contain errors or omissions. -- It Is medically necessary for this patient to continue to have their intrathecal pump refilled at regular intervals. This patient had an intrathecal pain pump implanted after meeting criteria of chronic intractable pain for greater than 3 months and failing conservative treatments. Patient has committed and been compliant to the treatment plan and all planned follow up care. Since implantation of the intrathecal pain pump, the patient has had decreased pain and been more functional. Oral medications have been reduced including intake of oral opioids. Patient continues to do well with intrathecal therapy with decrease in pain symptoms and increase in functional status. Stopping intrathecal medications can lead to life threatening withdrawal, seizures, cardiac arrest, severe pain, and possible . Pumps that are not refilled at regular intervals can be damages and cause and need for replacement. We continually titrate dose and concentration to optimize pain relief and function. We are limited in concentration for certain drugs to safely deliver medications
== END | disposition home or self-care (01) ==
PROVIDERS: PCP Family Medicine; Visit Provider Nurse Practitioner Family
DX: Z45.1 Encounter for adjustment and management of infusion pump (principal); M51.16 Intervertebral disc disorders with radiculopathy, lumbar region; M19.90 Unspecified osteoarthritis, unspecified site
CPT/HCPCS: 62368; 99213; G0463

== ENCOUNTER 2023-04-09 14:44 | Emergency (ER) | payer MEDICARE, SELFPAY ==
[2023-04-09 14:44] VITALS: BP 167/87; PULSE 72; RESP 18; TEMP 36.4; O2SAT 95; BMI 17.7
--- NOTE | 2023-04-09 15:06 | XR_ITS ---
FINAL REPORT CLINICAL HISTORY: Hemoptysis COMPARISON: Outside CT chest 12/08/2022 FINDINGS: There is a masslike opacity in the right upper lobe which was not present on the prior CT scan. There are extensive chronic interstitial changes. There is no evidence of effusion or pneumothorax. Mediastinum is unremarkable. Heart size is mildly enlarged. IMPRESSION: Interval development right apical density is probably inflammatory given short interval. Recommend continued follow-up. Reviewed, Interpreted and Dictated by Mary Jo Gay MD Transcribed by Inna Muhammad Authenticated and [facility]
--- NOTE | 2023-04-09 15:06 | HMH.EDSOB ---
Discharge Plan Disposition Patient Disposition: Home, Self-Care Condition: Fair Prescriptions Prescriptions: New azithromycin 250 mg tablet See Rx Instructions .ROUTE .COMPLEX Qty: 6 0RF Rx Instructions: For 250 mg dose pack: take 500 mg today (day 1), then 250 mg for 4 days (days 2-5) No Action morphine (PF) 1 mg/mL Solution 0.1 mg continuous epidural CONT Rx Instructions: 0.1MG/DAY clopidogrel 75 mg tablet 75 mg PO DAILY amlodipine 5 mg tablet 5 mg PO DAILY simvastatin 40 mg tablet 40 mg PO HS levothyroxine 25 mcg tablet 25 mcg PO DAILY folic acid 1 mg Tablet 1 mg PO DAILY Referrals Follow up/Referrals: Santi Connors [Primary Care Provider] - See instructions Activity Restrictions/Add. Instructions Additional Instructions/Restrictions: The tests we did today are concerning for possible lung cancer. It is, however, possible that this is simply pneumonia. I have prescribed you some antibiotics to be taken starting tomorrow in case this is just pneumonia. Nevertheless, you have to follow-up with your primary care doctor soon as possible, because you need further testing to determine whether you have lung cancer or not. Please return immediately to the emergency department if you feel worse in any way. Please stop smoking. Clinical Impressions Clinical Impression: Pneumonia, Lung cancer Instructions Patient Instructions: DI for Lung Cancer, Pneumonia-Adult Discharge ED Provider: Wendy Foster Resp/SOB HPI General Chief Complaint: GI Bleed Stated Complaint: Spitting up blood Time Seen by Provider: 04/09/23 14:55 Source of Information: Patient and Spouse History of Present Illness The patient presents to the emergency department complaining of a 1 week history of hemoptysis. He is a 1/3 pack a day smoker. He has rheumatoid arthritis. In the last 2 months he has had a pain pump placed for chronic back pain. He denies a history of pulmonary emboli or DVT. He is on Plavix. He also complains of left-sided rib pain. Related Data Home Medications Medication Instructions Recorded Confirmed amlodipine 5 mg tablet 5 mg PO DAILY blood pressure 07/03/22 04/06/23 clopidogrel 75 mg tablet 75 mg PO DAILY Blood thinner 07/03/22 04/06/23 folic acid 1 mg tablet 1 mg PO DAILY Supplement 07/03/22 04/06/23 levothyroxine 25 mcg tablet 25 mcg PO DAILY hypothyroid 07/03/22 04/06/23 simvastatin 40 mg tablet 40 mg PO HS cholsterol 07/03/22 04/06/23 morphine (PF) 1 mg/mL injection 0.1 mg continuous epidural CONT 12/19/22 04/06/23 solution Pain Previous Rx's Medication Instructions Recorded azithromycin 250 mg tablet See Rx Instructions PO .COMPLEX #6 04/09/23 tabs Allergies Allergy/AdvReac Type Severity Reaction Status Date / Time acetaminophen [From Lortab] AdvReac Verified 07/30/22 10:17 hydrocodone [From Lortab] AdvReac Verified 07/30/22 10:17 tramadol AdvReac Verified 07/30/22 10:17 PFSH PFSH Disclaimer: The information contained in this section may have been updated after the patient was seen, as this information can be updated by other users. Medical History Amputation of toe of left foot CAD (coronary artery disease) COPD (chronic obstructive pulmonary disease) HLD (hyperlipidemia) Hx of myocardial infarction Hypertension Hypothyroid Rheumatoid arthritis Rheumatoid lung disease with rheumatoid arthritis Surgical History H/O bilateral cataract extraction H/O knee surgery History of AAA (abdominal aortic aneurysm) repair History of heart artery stent Family History Other Family history of myocardial infarction Social History Smoking Status: Current every day smoker alcohol intake: former substance use
--- NOTE | 2023-04-09 15:23 | PC.NURSE ---
XR AT BEDSIDE
[2023-04-09 15:25] LABS: Basophils # 0.1 K/mm3 (0-0.2); Basophils % 0.6 % (0.1-2.0); Eosinophils # 0.2 K/mm3 (0.0-0.4); Eosinophils % 1.3 % (0.1-12.0); Hematocrit 53.2 % (42.0-52.0); Hemoglobin 16.8 g/dL (14.1-18.0); Lymphocytes % 14.2 % (10-50); Mean Corpuscular HGB Conc 31.6 g/dL (31.8-35.4); Mean Corpuscular Hemoglobin 25.7 pg (27.0-31.2); Mean Corpuscular Volume 81.4 fl (80-94); Mean Platelet Volume 6.9 fl (7.4-10.4); Monocytes # 0.8 K/mm3 (0.1-1.0); Monocytes % 5.4 % (1.7-9.3); Neutrophils # 11.1 K/mm3 (1.8-7.8); Neutrophils % 78.6 % (37.0-80.0); Platelet Count 294 K/mm3 (142-424); Red Blood Count 6.54 M/mm3 (4.60-6.20); Red Cell Distribution Width 16.6 % (11.5-17.5); White Blood Count 14.2 K/mm3 (4.8-10.8)
[2023-04-09 15:30] VITALS: BP 140/82; PULSE 89; RESP 20; O2SAT 91
[2023-04-09 15:33] LABS: Chloride 95 mmol/L (98-107); Potassium 3.6 mmoL/L (3.5-5.1); Sodium 135 mmol/L (136-145)
[2023-04-09 15:35] LABS: Blood Urea Nitrogen 16 mg/dl (9-20); Creatinine Clearance Estimated 49 mL/min (50-200); Estimated Glomerular Filt Rate 74 ml/min (>60); GFR (African American) 90 ML/MIN (>60)
[2023-04-09 15:36] LABS: Alanine Aminotransferase 20 U/L (12-78); Albumin/Globulin Ratio 1.3 (1.1-1.8); Alkaline Phosphatase 103 U/L (38-126); Anion Gap 15.6 mEq/L (5-15); Aspartate Amino Transferase 35 U/L (17-59); Bilirubin,Total 0.6 mg/dl (0.2-1.3); Calcium 9.4 mg/dl (8.4-10.2); Carbon Dioxide 28 mmol/L (22.0-30.0); Globulin 3.2 g/dL (1.3-3.2); Glucose 110 mg/dl (74-100); Total Protein,Serum 7.2 g/dl (6.3-8.2)
[2023-04-09 15:38] LABS: Activated Partial Thrombo Time 26.2 seconds (22.8-30.6); INR 1.06 (0.9-1.1); Prothrombin Time 11.4 seconds (10.1-12.5)
--- NOTE | 2023-04-09 15:49 | CT_ITS ---
FINAL REPORT CLINICAL HISTORY: Hemoptysis with suspected right upper lobe mass COMPARISON: Outside films from 12/08/2022 FINDINGS: CT CHEST without contrast TECHNIQUE: Axial CT without IV contrast administration. FINDINGS: There is a subpleural mass in the right upper lobe measuring 2.5 x 4.5 cm in size, new since the prior outside CT. Severe emphysema and diffuse interstitial lung disease are present. There is advanced right paracheal adenopathy, measuring 4.5 x 3.7 cm, previously normal in size. Subcarinal adenopathy is present measuring 3 x 2 cm in size, also previously normal in size. There is a right peribronchial mass which could represent metastatic disease or adenopathy measuring 3.2 x 2.5 cm. There is a new right lower lobe nodule, 1.6 cm in diameter. There is left adrenal gland enlargement, new since the prior exam as well compatible with metastatic disease. Cholelithiasis is present as well. IMPRESSION: Interval development of multiple pulmonary lesions, adenopathy and left adrenal gland enlargement compatible with metastases are seen as well. It is conceivable that one of these lung lesions could represent primary tumor. If tissue diagnosis is needed the posterior right upper lobe lesion may be targeted for core biopsy. This study was performed using automated techniques to achieve radiation exposure as low as reasonably achievable Reviewed, Interpreted and Dictated by Mary Jo Gay MD Transcribed by Ana Conklin Authenticated and . [facility]
--- NOTE | 2023-04-09 16:02 | PC.NURSE ---
pt gone for CT chest
[2023-04-09 16:30] VITALS: BP 163/87; PULSE 91; RESP 18; O2SAT 94
--- NOTE | 2023-04-09 16:35 | PC.NURSE ---
ROUNDED ON PT, WARM BLANKET PROVIDED. NO NEEDS AT THIS TIME
[2023-04-09 17:00] VITALS: BP 154/83; PULSE 87; RESP 18; O2SAT 89
[2023-04-09 17:30] VITALS: BP 162/89; PULSE 89; RESP 22; O2SAT 95
--- NOTE | 2023-04-09 17:32 | PC.NURSE ---
DR GARCIA AT BEDSIDE TO UPDATE PT AND FAMILY
[2023-04-09 17:55] VITALS: BP 162/89; PULSE 89; RESP 18; TEMP 36.4; O2SAT 96
--- NOTE | 2023-04-09 17:56 | PC.NURSE ---
pt to f/u with Dr Connors copy of scans sent with pt
== END 2023-04-09 18:00 | disposition home or self-care (01) ==
PROVIDERS: Emergency Provider Emergency Medicine; PCP Family Medicine
DX: J18.9 Pneumonia, unspecified organism (principal); C34.90 Malignant neoplasm of unspecified part of unspecified bronchus or lung; F17.210 Nicotine dependence, cigarettes, uncomplicated; R07.81 Pleurodynia; Z79.02 Long term (current) use of antithrombotics/antiplatelets; I25.10 Atherosclerotic heart disease of native coronary artery without angina pectoris; J44.9 Chronic obstructive pulmonary disease, unspecified; E78.5 Hyperlipidemia, unspecified; I25.2 Old myocardial infarction; I10 Essential (primary) hypertension; E03.9 Hypothyroidism, unspecified; M05.10 Rheumatoid lung disease with rheumatoid arthritis of unspecified site
CPT/HCPCS: 71045; 71250; 80053; 85025; 85610; 85730; 99284; 99285